=== PATIENT | female | born 1960 ===

== ENCOUNTER 2021-05-23 12:38 | Inpatient (IN) ==
[2021-05-23 13:50] LABS: Hematocrit 43.9 % (35.3-44.9); Hemoglobin 14.4 g/dL (11.5-15.4); Mean Corpuscular HGB Conc 32.8 g/dL (31.6-35.5); Mean Corpuscular Hemoglobin 27.4 pg (28.0-33.3); Mean Corpuscular Volume 83.6 fL (83.0-100.0); Mean Platelet Volume 9.1 fL (9.4-12.4); Platelet Count 336 K/mcL (140-400); Red Blood Count 5.25 M/mcL (3.82-4.97); Red Cell Distribution Width 16.7 % (11.5-14.5); White Blood Count 4.8 K/mcL (4.3-11.1)
[2021-05-23 14:11] LABS: BUN/Creatinine Ratio 27 (6-26); Blood Urea Nitrogen 36 mg/dL (6-20); Calcium 9.2 mg/dL (8.6-10.3); Carbon Dioxide 27 mEq/L (23-29); Chloride 95 mEq/L (98-107); Glucose 121 mg/dL (70-105); Osmolality,Calculated 288 (280-300); Potassium 3.9 mEq/L (3.5-5.1); Sodium 134 mEq/L (136-145); Troponin I < 0.03 ng/mL (< 0.04); eGFR For African Americans 49 (> 60); eGFR For Non-African Americans 40 (> 60)
[2021-05-23 14:16] LABS: Monocytes # 0.5 K/mcL (0.0-1.3); Neutrophils # 3.4 K/mcL (1.6-8.9); Platelet Estimate Normal (Normal); Reactive Lymphocytes Present (Not Present)
[2021-05-23] MEDS ORDERED: Albuterol 2.5 MG/3 ML NEBULIZER IH PRN (16:01)
[2021-05-23] MEDS ORDERED: Ipratropium/Albuterol Neb 3 ML IH PRN (16:01)
[2021-05-23 17:00] LABS: Albumin 3.7 g/dL (3.5-5.7); Albumin/Globulin Ratio 1.3 (1.1-2.2); Bilirubin,Direct 0.1 mg/dL (0.0-0.2); Bilirubin,Indirect 0.3 mg/dL (0.0-1.0); Bilirubin,Total 0.4 mg/dL (0.3-1.0); Globulin 2.9 g/dL (2.4-3.5); Total Protein 6.6 g/dL (6.4-8.9)
[2021-05-23] MEDS: MethylPREDNISolone 40 MG/ML VIAL IVP SCH (18:18)
[2021-05-23] MEDS: cefTRIAXone 1,000 MG in Water for inj. (sterile) 10 ML IVP SCH (18:18)
[2021-05-23] MEDS: Azithromycin 500 MG in 0.9 % Sodium Chloride 250 ML IVPB SCH (18:18)
[2021-05-23] MEDS: 0.9 % Sodium Chloride 1,000 ML IVC SCH (18:19)
[2021-05-23] MEDS: Ascorbic Acid 500 MG TABLET PO SCH (23:21)
[2021-05-23] MEDS: Melatonin 3 MG TABLET PO SCH (23:21)
[2021-05-23] MEDS: *HR* Enoxaparin 40 MG/0.4 ML SYRINGE SQ SCH (23:26)
[2021-05-24] MEDS: 0.9 % Sodium Chloride 1,000 ML IVC SCH ×4 (00:37→21:17)
[2021-05-24 06:01] LABS: Hematocrit 38.6 % (35.3-44.9); Hemoglobin 12.8 g/dL (11.5-15.4); Mean Corpuscular HGB Conc 33.2 g/dL (31.6-35.5); Mean Corpuscular Volume 84.5 fL (83.0-100.0); Mean Platelet Volume 9.1 fL (9.4-12.4); Platelet Count 328 K/mcL (140-400); Red Blood Count 4.57 M/mcL (3.82-4.97); Red Cell Distribution Width 16.6 % (11.5-14.5); White Blood Count 2.9 K/mcL (4.3-11.1)
[2021-05-24] MEDS: MethylPREDNISolone 40 MG/ML VIAL IVP SCH ×2 (06:04→17:38)
[2021-05-24 06:13] LABS: Prothrombin Time 11.5 Seconds (9.4-12.1)
[2021-05-24 06:23] LABS: Albumin 3.5 g/dL (3.5-5.7); Albumin/Globulin Ratio 1.5 (1.1-2.2); Bilirubin,Total 0.3 mg/dL (0.3-1.0); Calcium 8.6 mg/dL (8.6-10.3); Globulin 2.4 g/dL (2.4-3.5); Potassium 3.8 mEq/L (3.5-5.1); Total Protein 5.9 g/dL (6.4-8.9)
[2021-05-24] MEDS: *HR* Enoxaparin 40 MG/0.4 ML SYRINGE SQ SCH (07:36)
[2021-05-24] MEDS ORDERED: CefTRIAXone 1,000 MG VIAL ONE (07:38)
[2021-05-24] MEDS: cefTRIAXone 1,000 MG in Water for inj. (sterile) 10 ML IVP SCH (07:41)
[2021-05-24] MEDS: Multivit/Ca/Min/Fe/FA 1 TAB TABLET PO SCH (07:41)
[2021-05-24] MEDS: Folic Acid 1 MG TABLET PO SCH (07:41)
[2021-05-24] MEDS: Ascorbic Acid 500 MG TABLET PO SCH ×2 (07:41→21:16)
[2021-05-24] MEDS ORDERED: Remdesivir 200 MG in 0.9 % Sodium Chloride 100 ML IVPB ONE (12:00)
[2021-05-24] MEDS ORDERED: *HR* HYDROcodone/Acet 5/325 mg TABLET PO PRN (12:03)
[2021-05-24] MEDS ORDERED: Nitroglycerin 0.4 MG TAB.SUBL SL PRN (12:03)
[2021-05-24] MEDS ORDERED: valACYclovir 500 MG TABLET PO PRN (12:03)
[2021-05-24] MEDS ORDERED: Cholecalciferol (D-3) 1,000 UNIT (25MCG) TABLET PO SCH (12:15)
[2021-05-24] MEDS: Azithromycin 500 MG in 0.9 % Sodium Chloride 250 ML IVPB SCH (17:37)
[2021-05-24] MEDS: Melatonin 3 MG TABLET PO SCH (21:16)
[2021-05-24] MEDS: amLODIPine 5 MG TABLET PO SCH (21:16)
[2021-05-24] MEDS: *HR* Enoxaparin 30 MG/0.3 ML SYRINGE SQ SCH ×2 (21:16→21:20)
[2021-05-25 05:02] LABS: Hematocrit 39.5 % (35.3-44.9); Hemoglobin 12.8 g/dL (11.5-15.4); Mean Corpuscular HGB Conc 32.4 g/dL (31.6-35.5); Mean Corpuscular Hemoglobin 28.6 pg (28.0-33.3); Mean Corpuscular Volume 88.2 fL (83.0-100.0); Mean Platelet Volume 8.8 fL (9.4-12.4); Platelet Count 351 K/mcL (140-400); Red Blood Count 4.48 M/mcL (3.82-4.97); Red Cell Distribution Width 16.8 % (11.5-14.5)
[2021-05-25 05:03] LABS: White Blood Count 4.7 K/mcL (4.3-11.1)
[2021-05-25 05:10] LABS: INR 1.1; Prothrombin Time 11.8 Seconds (9.4-12.1)
[2021-05-25 05:22] LABS: Alanine Aminotransferase 20 Units/L (7-52); Albumin 3.2 g/dL (3.5-5.7); Albumin/Globulin Ratio 1.5 (1.1-2.2); Alkaline Phosphatase 53 Units/L (34-104); Aspartate Amino Transferase 16 Units/L (13-39); BUN/Creatinine Ratio 26 (6-26); Bilirubin,Total 0.3 mg/dL (0.3-1.0); Blood Urea Nitrogen 24 mg/dL (6-20); Calcium 8.5 mg/dL (8.6-10.3); Carbon Dioxide 30 mEq/L (23-29); Chloride 104 mEq/L (98-107); Globulin 2.2 g/dL (2.4-3.5); Glucose 137 mg/dL (70-105); Osmolality,Calculated 294 (280-300); Potassium 4.1 mEq/L (3.5-5.1); Sodium 139 mEq/L (136-145); Total Protein 5.4 g/dL (6.4-8.9); eGFR For African Americans > 60 (> 60); eGFR For Non-African Americans > 60 (> 60)
[2021-05-25 05:24] LABS: Albumin 3.3 g/dL (3.5-5.7); Albumin/Globulin Ratio 1.5 (1.1-2.2); Bilirubin,Direct 0.1 mg/dL (0.0-0.2); Bilirubin,Indirect 0.2 mg/dL (0.0-1.0); Bilirubin,Total 0.3 mg/dL (0.3-1.0); Globulin 2.2 g/dL (2.4-3.5); Total Protein 5.5 g/dL (6.4-8.9)
[2021-05-25 05:25] LABS: Lactate Dehydrogenase 216 Units/L (140-271)
[2021-05-25] MEDS: MethylPREDNISolone 40 MG/ML VIAL IVP SCH ×2 (05:38→17:16)
[2021-05-25 05:42] LABS: Ferritin 213 ng/mL (10-120)
[2021-05-25] MEDS: Ascorbic Acid 500 MG TABLET PO SCH ×2 (09:48→19:54)
[2021-05-25] MEDS: Folic Acid 1 MG TABLET PO SCH (09:48)
[2021-05-25] MEDS: Metoprolol XL (24 HR) Succ 25 MG TAB.ER.24H PO SCH (09:48)
[2021-05-25] MEDS: Multivit/Ca/Min/Fe/FA 1 TAB TABLET PO SCH (09:48)
[2021-05-25] MEDS: Aspirin 325 MG TABLET PO SCH (09:48)
[2021-05-25] MEDS: 0.9 % Sodium Chloride 1,000 ML IVC SCH ×2 (09:53→18:28)
[2021-05-25] MEDS: cefTRIAXone 1,000 MG in Water for inj. (sterile) 10 ML IVP SCH (10:01)
[2021-05-25] MEDS: Losartan/HCTZ 50-12.5 TABLET PO SCH (10:22)
[2021-05-25] MEDS: BuPROPion XL (24 HR) 150 MG TABLET PO SCH (10:22)
[2021-05-25] MEDS: Tolterodine LA (24 HR) 2 MG CAP.ER.24H PO SCH (10:22)
[2021-05-25] MEDS: *HR* Enoxaparin 30 MG/0.3 ML SYRINGE SQ SCH ×2 (10:37→22:37)
[2021-05-25] MEDS: Remdesivir 100 MG in 0.9 % Sodium Chloride 100 ML IVPB SCH (13:20)
[2021-05-25] MEDS: Azithromycin 500 MG in 0.9 % Sodium Chloride 250 ML IVPB SCH (17:16)
[2021-05-25] MEDS: Melatonin 3 MG TABLET PO SCH (19:54)
[2021-05-25] MEDS: amLODIPine 5 MG TABLET PO SCH (19:54)
[2021-05-26 02:56] LABS: Hematocrit 39.4 % (35.3-44.9); Mean Corpuscular Hemoglobin 28.2 pg (28.0-33.3); Mean Corpuscular Volume 85.5 fL (83.0-100.0); Mean Platelet Volume 8.7 fL (9.4-12.4); Platelet Count 408 K/mcL (140-400); Red Blood Count 4.61 M/mcL (3.82-4.97); Red Cell Distribution Width 16.4 % (11.5-14.5)
[2021-05-26 03:04] LABS: White Blood Count 7.1 K/mcL (4.3-11.1)
[2021-05-26 03:06] LABS: Alanine Aminotransferase 22 Units/L (7-52); Albumin 3.3 g/dL (3.5-5.7); Albumin/Globulin Ratio 1.5 (1.1-2.2); Alkaline Phosphatase 53 Units/L (34-104); Aspartate Amino Transferase 18 Units/L (13-39); BUN/Creatinine Ratio 24 (6-26); Bilirubin,Total 0.3 mg/dL (0.3-1.0); Blood Urea Nitrogen 22 mg/dL (6-20); Calcium 8.7 mg/dL (8.6-10.3); Carbon Dioxide 29 mEq/L (23-29); Chloride 104 mEq/L (98-107); Globulin 2.2 g/dL (2.4-3.5); Glucose 98 mg/dL (70-105); Osmolality,Calculated 293 (280-300); Potassium 4.3 mEq/L (3.5-5.1); Sodium 140 mEq/L (136-145); Total Protein 5.5 g/dL (6.4-8.9); eGFR For African Americans > 60 (> 60); eGFR For Non-African Americans > 60 (> 60)
[2021-05-26 03:07] LABS: Albumin 3.4 g/dL (3.5-5.7); Albumin/Globulin Ratio 1.7 (1.1-2.2); Bilirubin,Direct 0.1 mg/dL (0.0-0.2); Bilirubin,Indirect 0.2 mg/dL (0.0-1.0); Bilirubin,Total 0.3 mg/dL (0.3-1.0); Lactate Dehydrogenase 227 Units/L (140-271); Total Protein 5.4 g/dL (6.4-8.9)
[2021-05-26 03:25] LABS: Ferritin 165 ng/mL (10-120)
[2021-05-26 04:08] LABS: Prothrombin Time 11.5 Seconds (9.4-12.1)
[2021-05-26] MEDS: 0.9 % Sodium Chloride 1,000 ML IVC SCH ×2 (04:57→15:20)
[2021-05-26] MEDS: MethylPREDNISolone 40 MG/ML VIAL IVP SCH ×2 (05:54→17:29)
[2021-05-26] MEDS: Folic Acid 1 MG TABLET PO SCH (08:10)
[2021-05-26] MEDS: ACETYLCYSTEINE 600 MG PO SCH ×2 (08:10→19:38)
[2021-05-26] MEDS: Losartan/HCTZ 50-12.5 TABLET PO SCH (08:12)
[2021-05-26] MEDS: Metoprolol XL (24 HR) Succ 25 MG TAB.ER.24H PO SCH (08:12)
[2021-05-26] MEDS: Tolterodine LA (24 HR) 2 MG CAP.ER.24H PO SCH (08:13)
[2021-05-26] MEDS: Aspirin 325 MG TABLET PO SCH (08:13)
[2021-05-26] MEDS: cefTRIAXone 1,000 MG in Water for inj. (sterile) 10 ML IVP SCH (08:13)
[2021-05-26] MEDS: Multivit/Ca/Min/Fe/FA 1 TAB TABLET PO SCH (08:13)
[2021-05-26] MEDS: Ascorbic Acid 500 MG TABLET PO SCH ×2 (08:13→21:49)
[2021-05-26] MEDS: *HR* Enoxaparin 30 MG/0.3 ML SYRINGE SQ SCH ×2 (08:14→21:17)
[2021-05-26] MEDS: BuPROPion XL (24 HR) 150 MG TABLET PO SCH (08:24)
[2021-05-26] MEDS: Remdesivir 100 MG in 0.9 % Sodium Chloride 100 ML IVPB SCH (15:26)
[2021-05-26] MEDS: Azithromycin 500 MG in 0.9 % Sodium Chloride 250 ML IVPB SCH (16:36)
[2021-05-26] MEDS: amLODIPine 5 MG TABLET PO SCH (21:46)
[2021-05-26] MEDS: Melatonin 3 MG TABLET PO SCH (21:46)
[2021-05-27 06:03] LABS: Hemoglobin 12.8 g/dL (11.5-15.4); Mean Corpuscular HGB Conc 32.8 g/dL (31.6-35.5); Mean Corpuscular Hemoglobin 27.9 pg (28.0-33.3); Mean Platelet Volume 8.7 fL (9.4-12.4); Platelet Count 417 K/mcL (140-400); Red Blood Count 4.59 M/mcL (3.82-4.97); Red Cell Distribution Width 16.2 % (11.5-14.5); White Blood Count 7.3 K/mcL (4.3-11.1)
[2021-05-27 06:12] LABS: INR 1.1; Prothrombin Time 11.8 Seconds (9.4-12.1)
[2021-05-27] MEDS: MethylPREDNISolone 40 MG/ML VIAL IVP SCH ×2 (06:13→21:11)
[2021-05-27 06:14] LABS: Albumin 3.2 g/dL (3.5-5.7); Albumin/Globulin Ratio 1.6 (1.1-2.2); Bilirubin,Direct 0.1 mg/dL (0.0-0.2); Bilirubin,Indirect 0.3 mg/dL (0.0-1.0); Bilirubin,Total 0.4 mg/dL (0.3-1.0); Total Protein 5.2 g/dL (6.4-8.9)
[2021-05-27] MEDS: 0.9 % Sodium Chloride 1,000 ML IVC SCH (06:14)
[2021-05-27 06:18] LABS: Alanine Aminotransferase 22 Units/L (7-52); Albumin 3.3 g/dL (3.5-5.7); Albumin/Globulin Ratio 1.7 (1.1-2.2); Alkaline Phosphatase 53 Units/L (34-104); Aspartate Amino Transferase 17 Units/L (13-39); BUN/Creatinine Ratio 28 (6-26); Bilirubin,Total 0.4 mg/dL (0.3-1.0); Blood Urea Nitrogen 22 mg/dL (6-20); Calcium 8.7 mg/dL (8.6-10.3); Carbon Dioxide 30 mEq/L (23-29); Chloride 102 mEq/L (98-107); Glucose 129 mg/dL (70-105); Lactate Dehydrogenase 237 Units/L (140-271); Osmolality,Calculated 291 (280-300); Potassium 4.2 mEq/L (3.5-5.1); Sodium 138 mEq/L (136-145); Total Protein 5.3 g/dL (6.4-8.9); eGFR For African Americans > 60 (> 60); eGFR For Non-African Americans > 60 (> 60)
[2021-05-27 06:32] LABS: Ferritin 169 ng/mL (10-120)
[2021-05-27] MEDS ORDERED: *HR* HYDROcodone/Acet 5/325 mg TABLET PO PRN (08:06)
[2021-05-27] MEDS: BuPROPion XL (24 HR) 150 MG TABLET PO SCH (09:14)
[2021-05-27] MEDS: Folic Acid 1 MG TABLET PO SCH (09:16)
[2021-05-27] MEDS: Tolterodine LA (24 HR) 2 MG CAP.ER.24H PO SCH (09:16)
[2021-05-27] MEDS: Metoprolol XL (24 HR) Succ 25 MG TAB.ER.24H PO SCH (09:27)
[2021-05-27] MEDS: Multivit/Ca/Min/Fe/FA 1 TAB TABLET PO SCH (09:30)
[2021-05-27] MEDS: *HR* Enoxaparin 30 MG/0.3 ML SYRINGE SQ SCH ×2 (09:31→21:26)
[2021-05-27] MEDS: Losartan/HCTZ 50-12.5 TABLET PO SCH (09:31)
[2021-05-27] MEDS: ACETYLCYSTEINE 600 MG PO SCH (09:32)
[2021-05-27] MEDS: Aspirin 325 MG TABLET PO SCH (09:45)
[2021-05-27] MEDS: cefTRIAXone 1,000 MG in Water for inj. (sterile) 10 ML IVP SCH (10:11)
[2021-05-27] MEDS: Ascorbic Acid 500 MG TABLET PO SCH ×2 (13:07→21:26)
[2021-05-27] MEDS ORDERED: Isovue-370 500 ML BOTTLE IVP ONE (13:19)
[2021-05-27] MEDS: Remdesivir 100 MG in 0.9 % Sodium Chloride 100 ML IVPB SCH (16:18)
[2021-05-27] MEDS: Azithromycin 500 MG in 0.9 % Sodium Chloride 250 ML IVPB SCH (20:05)
[2021-05-27] MEDS: amLODIPine 5 MG TABLET PO SCH (21:09)
[2021-05-27] MEDS: Melatonin 3 MG TABLET PO SCH (21:10)
[2021-05-28] MEDS: MethylPREDNISolone 40 MG/ML VIAL IVP SCH ×2 (05:41→17:38)
[2021-05-28] MEDS: 0.9 % Sodium Chloride 1,000 ML IVC SCH (05:41)
[2021-05-28 05:52] LABS: Hematocrit 41.9 % (35.3-44.9); Hemoglobin 13.5 g/dL (11.5-15.4); Mean Corpuscular HGB Conc 32.2 g/dL (31.6-35.5); Mean Corpuscular Hemoglobin 27.2 pg (28.0-33.3); Mean Corpuscular Volume 84.5 fL (83.0-100.0); Mean Platelet Volume 8.7 fL (9.4-12.4); Platelet Count 452 K/mcL (140-400); Red Blood Count 4.96 M/mcL (3.82-4.97); Red Cell Distribution Width 16.3 % (11.5-14.5); White Blood Count 9.4 K/mcL (4.3-11.1)
[2021-05-28 05:59] LABS: Alanine Aminotransferase 22 Units/L (7-52); Albumin 3.6 g/dL (3.5-5.7); Albumin/Globulin Ratio 1.7 (1.1-2.2); Alkaline Phosphatase 57 Units/L (34-104); Aspartate Amino Transferase 19 Units/L (13-39); BUN/Creatinine Ratio 24 (6-26); Bilirubin,Total 0.4 mg/dL (0.3-1.0); Blood Urea Nitrogen 20 mg/dL (6-20); Calcium 8.7 mg/dL (8.6-10.3); Carbon Dioxide 29 mEq/L (23-29); Chloride 101 mEq/L (98-107); Globulin 2.1 g/dL (2.4-3.5); Glucose 174 mg/dL (70-105); Lactate Dehydrogenase 295 Units/L (140-271); Osmolality,Calculated 293 (280-300); Potassium 4.3 mEq/L (3.5-5.1); Sodium 138 mEq/L (136-145); Total Protein 5.7 g/dL (6.4-8.9); eGFR For African Americans > 60 (> 60); eGFR For Non-African Americans > 60 (> 60)
[2021-05-28 06:02] LABS: Prothrombin Time 11.2 Seconds (9.4-12.1)
[2021-05-28 06:07] LABS: Albumin 3.6 g/dL (3.5-5.7); Albumin/Globulin Ratio 1.7 (1.1-2.2); Bilirubin,Direct 0.1 mg/dL (0.0-0.2); Bilirubin,Indirect 0.3 mg/dL (0.0-1.0); Bilirubin,Total 0.4 mg/dL (0.3-1.0); Globulin 2.1 g/dL (2.4-3.5); Total Protein 5.7 g/dL (6.4-8.9)
[2021-05-28 06:14] LABS: Ferritin 156 ng/mL (10-120)
[2021-05-28] MEDS: Multivit/Ca/Min/Fe/FA 1 TAB TABLET PO SCH (09:14)
[2021-05-28] MEDS: Folic Acid 1 MG TABLET PO SCH (09:14)
[2021-05-28] MEDS: BuPROPion XL (24 HR) 150 MG TABLET PO SCH (09:14)
[2021-05-28] MEDS: Losartan/HCTZ 50-12.5 TABLET PO SCH (09:15)
[2021-05-28] MEDS: Tolterodine LA (24 HR) 2 MG CAP.ER.24H PO SCH (09:15)
[2021-05-28] MEDS: *HR* Enoxaparin 30 MG/0.3 ML SYRINGE SQ SCH (09:36)
[2021-05-28] MEDS: ACETYLCYSTEINE 600 MG PO SCH (09:39)
[2021-05-28] MEDS: Ascorbic Acid 500 MG TABLET PO SCH ×2 (09:42→22:01)
[2021-05-28] MEDS: Aspirin 325 MG TABLET PO SCH (09:43)
[2021-05-28] MEDS: cefTRIAXone 1,000 MG in Water for inj. (sterile) 10 ML IVP SCH (10:13)
[2021-05-28] MEDS: Azithromycin 500 MG in 0.9 % Sodium Chloride 250 ML IVPB SCH (17:39)
[2021-05-28] MEDS: Remdesivir 100 MG in 0.9 % Sodium Chloride 100 ML IVPB SCH (19:20)
[2021-05-28] MEDS: Melatonin 3 MG TABLET PO SCH (22:01)
[2021-05-28] MEDS: amLODIPine 5 MG TABLET PO SCH (22:01)
[2021-05-29] MEDS: *HR* Enoxaparin 30 MG/0.3 ML SYRINGE SQ SCH ×2 (00:11→09:38)
[2021-05-29] MEDS: MethylPREDNISolone 40 MG/ML VIAL IVP SCH (06:01)
[2021-05-29 06:36] LABS: Hematocrit 42.2 % (35.3-44.9); Hemoglobin 13.3 g/dL (11.5-15.4); Mean Corpuscular HGB Conc 31.5 g/dL (31.6-35.5); Mean Corpuscular Volume 85.6 fL (83.0-100.0); Mean Platelet Volume 8.4 fL (9.4-12.4); Platelet Count 448 K/mcL (140-400); Red Blood Count 4.93 M/mcL (3.82-4.97); Red Cell Distribution Width 16.6 % (11.5-14.5); White Blood Count 11.5 K/mcL (4.3-11.1)
[2021-05-29 06:57] LABS: Alanine Aminotransferase 20 Units/L (7-52); Albumin 3.5 g/dL (3.5-5.7); Albumin/Globulin Ratio 1.7 (1.1-2.2); Alkaline Phosphatase 54 Units/L (34-104); Aspartate Amino Transferase 14 Units/L (13-39); BUN/Creatinine Ratio 28 (6-26); Bilirubin,Direct 0.2 mg/dL (0.0-0.2); Bilirubin,Indirect 0.2 mg/dL (0.0-1.0); Bilirubin,Total 0.4 mg/dL (0.3-1.0); Blood Urea Nitrogen 23 mg/dL (6-20); Carbon Dioxide 30 mEq/L (23-29); Chloride 102 mEq/L (98-107); Globulin 2.1 g/dL (2.4-3.5); Glucose 127 mg/dL (70-105); Osmolality,Calculated 291 (280-300); Potassium 4.5 mEq/L (3.5-5.1); Sodium 138 mEq/L (136-145); Total Protein 5.6 g/dL (6.4-8.9); eGFR For African Americans > 60 (> 60); eGFR For Non-African Americans > 60 (> 60)
[2021-05-29] MEDS: cefTRIAXone 1,000 MG in Water for inj. (sterile) 10 ML IVP SCH (09:20)
[2021-05-29] MEDS: Folic Acid 1 MG TABLET PO SCH (09:33)
[2021-05-29] MEDS: BuPROPion XL (24 HR) 150 MG TABLET PO SCH (09:33)
[2021-05-29] MEDS: Aspirin 325 MG TABLET PO SCH (09:33)
[2021-05-29] MEDS: Ascorbic Acid 500 MG TABLET PO SCH (09:33)
[2021-05-29] MEDS: Losartan/HCTZ 50-12.5 TABLET PO SCH (09:33)
[2021-05-29] MEDS: Multivit/Ca/Min/Fe/FA 1 TAB TABLET PO SCH (09:34)
[2021-05-29] MEDS: ACETYLCYSTEINE 600 MG PO SCH (09:35)
[2021-05-29] MEDS: Tolterodine LA (24 HR) 2 MG CAP.ER.24H PO SCH (09:38)
[2021-05-29 17:11] VITALS: BP 151/79; PULSE 85; TEMP 98.5; O2SAT 93
[2021-05-29] MEDS ORDERED: Haloperidol Lactate 5 MG/ML VIAL IM ONE (17:29)
== END 2021-05-29 18:16 | disposition home or self-care (01) | DRG 177 ==
LOC: EMEROOARM 12:38 → 3NENU 16:16 → SUATTDRO 16:16 → 3NENU 17:51
PROVIDERS: ADMIT Hospitalist; ATTEND Family Medicine

== ENCOUNTER 2021-07-01 19:37 | Inpatient (IN) ==
[2021-07-01] MEDS ORDERED: Isovue-370 500 ML BOTTLE IVP ONE (22:34)
[2021-07-01 22:47] LABS: Basophils # 0.1 K/mcL (0.0-0.2); Basophils % 0.6 %; Hematocrit 39.8 % (35.3-44.9); Hemoglobin 12.9 g/dL (11.5-15.4); Immature Granulocytes % 0.5 % (0-4); Lymphocytes # 1.6 K/mcL (0.6-4.6); Lymphocytes % 18.2 %; Mean Corpuscular HGB Conc 32.4 g/dL (31.6-35.5); Mean Corpuscular Hemoglobin 28.6 pg (28.0-33.3); Mean Corpuscular Volume 88.2 fL (83.0-100.0); Mean Platelet Volume 9.6 fL (9.4-12.4); Monocytes # 0.7 K/mcL (0.0-1.3); Monocytes % 7.8 %; Neutrophils # 6.2 K/mcL (1.6-8.9); Platelet Count 248 K/mcL (140-400); Red Blood Count 4.51 M/mcL (3.82-4.97); Red Cell Distribution Width 16.1 % (11.5-14.5); Segmented Neutrophils % 72.9 %; White Blood Count 8.5 K/mcL (4.3-11.1)
[2021-07-01 22:52] LABS: VBG HCO3 32 mEq/L (21-27); VBG PCO2 69 mmHg (41-51); VBG PH 7.28 pH Units (7.32-7.42); VBG PO2 47 mmHg (25-50)
[2021-07-01] MEDS ORDERED: Ipratropium/Albuterol Neb 3 ML IH ONE (22:59)
[2021-07-01 23:22] LABS: Alanine Aminotransferase 25 Units/L (7-52); Albumin 4.3 g/dL (3.5-5.7); Albumin/Globulin Ratio 1.7 (1.1-2.2); Alkaline Phosphatase 73 Units/L (34-104); Aspartate Amino Transferase 23 Units/L (13-39); BUN/Creatinine Ratio 14 (6-26); Bilirubin,Direct 0.1 mg/dL (0.0-0.2); Bilirubin,Indirect 0.4 mg/dL (0.0-1.0); Bilirubin,Total 0.5 mg/dL (0.3-1.0); Blood Urea Nitrogen 12 mg/dL (6-20); Calcium 9.1 mg/dL (8.6-10.3); Carbon Dioxide 30 mEq/L (23-29); Chloride 97 mEq/L (98-107); Globulin 2.5 g/dL (2.4-3.5); Glucose 111 mg/dL (70-105); Osmolality,Calculated 278 (280-300); Potassium 3.5 mEq/L (3.5-5.1); Sodium 134 mEq/L (136-145); Total Protein 6.8 g/dL (6.4-8.9); eGFR For African Americans > 60 (> 60); eGFR For Non-African Americans > 60 (> 60)
[2021-07-01 23:23] LABS: Troponin I < 0.03 ng/mL (< 0.04)
[2021-07-01 23:37] LABS: Thyroid Stimulating Hormone 3.329 mcIU/mL (0.340-5.600)
[2021-07-02] MEDS ORDERED: methylPREDNISolone 125 MG/2 ML VIAL IVP ONE (01:30)
[2021-07-02] MEDS ORDERED: 0.9 % Sodium Chloride 1,000 ML IVC ONE (03:14)
[2021-07-02] MEDS ORDERED: 0.9 % Sodium Chloride 500 ML IVC ONE (03:17)
[2021-07-02 03:27] LABS: Adenovirus Not Detected (Not Detect); Bordetella Pertussis Not Detected (Not Detect); Chlamydophila pneumoniae Not Detected (Not Detect); Coronavirus 229E Not Detected (Not Detect); Coronavirus HKU1 Not Detected (Not Detect); Coronavirus NL63 Not Detected (Not Detect); Coronavirus OC43 Not Detected (Not Detect); Human Metapneumovirus Not Detected (Not Detect); Human Rhinovirus/Enterovirus Not Detected (Not Detect); Influenza A Subtype 2009 H1 Not Detected (Not Detect); Influenza B Not Detected (Not Detect); Mycoplasma pneumoniae Not Detected (Not Detect); Parainfluenza Virus 1 Not Detected (Not Detect); Parainfluenza Virus 2 Not Detected (Not Detect); Parainfluenza Virus 3 Not Detected (Not Detect); Parainfluenza Virus 4 Not Detected (Not Detect); Respiratory Syncytial Virus DETECTED (Not Detect); SARS-CoV-2 Not Detected (Not Detect)
[2021-07-02] MEDS ORDERED: Naloxone 0.4 MG/ML INJ IVP PRN (03:31)
[2021-07-02] MEDS ORDERED: Melatonin 3 MG TABLET PO PRN (03:31)
[2021-07-02 04:49] LABS: Amphetamine Screen,Urine Negative ng/mL (Cutoff=1000); Barbiturate Screen,Urine Negative ng/mL (Cutoff=200); Benzodiazepines Screen,Urine Negative ng/mL (Cutoff=200); Cannabinoid Screen,Urine Negative ng/mL (Cutoff = 50); Cocaine Screen,Urine Negative ng/mL (Cutoff= 300); Opiate Screen,Urine Negative ng/mL (Cutoff=300); Phencyclidine Screen,Urine Negative ng/mL (Cutoff=25)
[2021-07-02 05:12] LABS: Hematocrit 39.5 % (35.3-44.9); Hemoglobin 12.5 g/dL (11.5-15.4); Mean Corpuscular HGB Conc 31.6 g/dL (31.6-35.5); Mean Corpuscular Hemoglobin 28.1 pg (28.0-33.3); Mean Corpuscular Volume 88.8 fL (83.0-100.0); Mean Platelet Volume 9.2 fL (9.4-12.4); Platelet Count 236 K/mcL (140-400); Red Blood Count 4.45 M/mcL (3.82-4.97); Red Cell Distribution Width 16.3 % (11.5-14.5); White Blood Count 8.4 K/mcL (4.3-11.1)
[2021-07-02 05:28] LABS: BUN/Creatinine Ratio 16 (6-26); Blood Urea Nitrogen 13 mg/dL (6-20); C-Reactive Protein < 5 mg/L (Less than 10); Calcium 8.8 mg/dL (8.6-10.3); Carbon Dioxide 29 mEq/L (23-29); Chloride 97 mEq/L (98-107); Glucose 137 mg/dL (70-105); Magnesium 1.6 mg/dL (1.6-2.6); Osmolality,Calculated 280 (280-300); Phosphorous 3.8 mg/dL (2.7-4.5); Potassium 3.6 mEq/L (3.5-5.1); Sodium 134 mEq/L (136-145); eGFR For African Americans > 60 (> 60); eGFR For Non-African Americans > 60 (> 60)
[2021-07-02] MEDS: *HR* Heparin 5,000 UNIT/ML VIAL SQ SCH ×2 (06:05→17:18)
[2021-07-02 08:12] LABS: Ethanol < 10 mg/dL (Less than 10)
[2021-07-02] MEDS ORDERED: BuPROPion XL (24 HR) 150 MG TABLET PO SCH (09:00)
[2021-07-02] MEDS: BuPROPion XL (24 HR) 150 MG TABLET PO SCH (09:58)
[2021-07-02] MEDS: Metoprolol XL (24 HR) Succ 25 MG TAB.ER.24H PO SCH (09:58)
[2021-07-02] MEDS: MethylPREDNISolone 40 MG/ML VIAL IVP SCH ×2 (10:01→17:18)
[2021-07-02] MEDS: Ipratropium/Albuterol Neb 3 ML IH SCH ×4 (10:02→20:45)
[2021-07-02] MEDS ORDERED: traZODone 50 MG TABLET PO SCH (21:00)
[2021-07-03] MEDS: MethylPREDNISolone 40 MG/ML VIAL IVP SCH ×2 (01:46→08:08)
[2021-07-03 03:11] LABS: Basophils % 0.3 %; Hematocrit 34.6 % (35.3-44.9); Hemoglobin 11.3 g/dL (11.5-15.4); Immature Granulocytes % 0.8 % (0-4); Lymphocytes # 1.3 K/mcL (0.6-4.6); Lymphocytes % 19.3 %; Mean Corpuscular HGB Conc 32.7 g/dL (31.6-35.5); Mean Corpuscular Hemoglobin 28.8 pg (28.0-33.3); Mean Corpuscular Volume 88.3 fL (83.0-100.0); Mean Platelet Volume 9.4 fL (9.4-12.4); Monocytes # 0.4 K/mcL (0.0-1.3); Monocytes % 5.9 %; Neutrophils # 4.8 K/mcL (1.6-8.9); Platelet Count 240 K/mcL (140-400); Red Blood Count 3.92 M/mcL (3.82-4.97); Segmented Neutrophils % 73.7 %; White Blood Count 6.5 K/mcL (4.3-11.1)
[2021-07-03 03:28] LABS: Alanine Aminotransferase 18 Units/L (7-52); Albumin 3.7 g/dL (3.5-5.7); Albumin/Globulin Ratio 1.6 (1.1-2.2); Alkaline Phosphatase 63 Units/L (34-104); Aspartate Amino Transferase 16 Units/L (13-39); BUN/Creatinine Ratio 22 (6-26); Bilirubin,Total 0.3 mg/dL (0.3-1.0); Blood Urea Nitrogen 21 mg/dL (6-20); Calcium 8.9 mg/dL (8.6-10.3); Carbon Dioxide 32 mEq/L (23-29); Chloride 95 mEq/L (98-107); Globulin 2.3 g/dL (2.4-3.5); Glucose 183 mg/dL (70-105); Osmolality,Calculated 286 (280-300); Potassium 3.8 mEq/L (3.5-5.1); Sodium 134 mEq/L (136-145); eGFR For African Americans > 60 (> 60); eGFR For Non-African Americans > 60 (> 60)
[2021-07-03 03:38] LABS: Platelet Estimate Normal (Normal); Reactive Lymphocytes Present (Not Present)
[2021-07-03] MEDS: Ipratropium/Albuterol Neb 3 ML IH SCH ×2 (03:49→11:32)
[2021-07-03] MEDS: *HR* Heparin 5,000 UNIT/ML VIAL SQ SCH (05:48)
[2021-07-03] MEDS ORDERED: GuaiFENesin Liq 200 MG/10 ML UDC PO PRN (06:00)
[2021-07-03] MEDS: BuPROPion XL (24 HR) 150 MG TABLET PO SCH (08:09)
[2021-07-03] MEDS: Metoprolol XL (24 HR) Succ 25 MG TAB.ER.24H PO SCH (08:09)
[2021-07-03] MEDS ORDERED: Aspirin 325 MG TABLET PO SCH (09:00)
[2021-07-03 11:03] VITALS: BP 115/68; PULSE 71; TEMP 97.9; O2SAT 95
[2021-07-05] MEDS ORDERED: BuPROPion XL (24 HR) 150 MG TABLET PO SCH (09:00)
== END 2021-07-03 13:53 | disposition home health service (06) | DRG 190 ==
LOC: EMEROOARM 19:37 → 3BNU 19:37 → SUATTDRO 07-02 17:29
PROVIDERS: ADMIT Student in an Organized Health Care Education/Training Program; ATTEND Registered Nurse